=== PATIENT | male | born 1960 | race Caucasian/White ===

== ENCOUNTER → 2021-09-05 11:37 | Outpatient (CLI) | payer OTHER, SELFPAY ==
[2021-09-05 18:49] LABS: Add Manual Diff / Slide Review NO; Basophils Absolute Auto 0 /uL (0-100); Basophils Percent Auto 0.4 % (0-2); Eosinophils Absolute Auto 100 /uL (0-450); Eosinophils Percent Auto 1.1 % (2-4); Hematocrit 45.5 % (41-53); Hemoglobin 15.7 g/dL (13.5-17.5); Lymphocytes Absolute Auto 1600 /uL (1100-4500); Lymphocytes Percent Auto 27.6 % (25-40); Mean Corpuscular HGB Conc 34.6 % (30-36); Mean Corpuscular Hemoglobin 31.7 PG (26-34); Mean Corpuscular Volume 91.7 fL (80-100); Monocytes Absolute Auto 500 /uL (0-900); Monocytes Percent Auto 8.6 % (3-14); Neutrophils Absolute Auto 3700 /uL (1500-7000); Neutrophils Percent Auto 62.3 % (50-75); Platelet Count 232 X10^3/uL (150-400); Red Blood Cell Count 4.96 X10^6/uL (4.5-5.9); Red Cell Distribution Width 13.4 % (11.6-14.8); White Blood Cell Count 5.9 X10^3/uL (4.5-11.0)
[2021-09-05 19:03] LABS: Alanine Aminotransferase 21 IU/L (<50); Albumin 4.4 g/dL (3.5-5.0); Albumin Globulin Ratio 1.8 (1.0-2.8); Alkaline Phosphatase 64 U/L (38-126); Aspartate Aminotransferase 26 IU/L (17-59); BUN Creatinine Ratio 15.1 (6-22); Bilirubin Total 0.7 mg/dL (0.2-1.3); Blood Urea Nitrogen 13 mg/dL (9-20); Calcium 9.4 mg/dL (8.4-10.2); Carbon Dioxide 26 mmol/L (22-32); Chloride 107 mmol/L (98-107); Cholesterol 171 mg/dL (140-199); Estimated Glomerular Filt Rate > 60.0 mL/min (>60); Globulin 2.5 g/dL (1.7-4.1); Glucose 96 mg/dL (70-100); HDL Cholesterol 65 mg/dL (40-60); HEMOLYSIS < 15 (0-50); LDL Cholesterol Calculated 87 mg/dL (<100); Potassium 4.3 mmol/L (3.4-5.1); Sodium 140 mmol/L (137-145); Total Protein 6.9 g/dL (6.3-8.2); Triglycerides 97 mg/dL (35-150)
[2021-09-05 19:33] LABS: Prostate Specific Antigen Scrn 2.53 ng/mL (0.1-4.0)
[2021-09-05 19:52] LABS: Vitamin B12 972 pg/mL (239-931)
== END ==
PROVIDERS: Family Provider Family Medicine; PCP Family Medicine; Visit Provider Family Medicine
DX: Z00.00 Encounter for general adult medical examination without abnormal findings (principal); Z12.5 Encounter for screening for malignant neoplasm of prostate
CPT/HCPCS: 80053; 80061; 82607; 85025; G0103

== ENCOUNTER → 2022-03-04 15:46 | Outpatient (CLI) | payer OTHER, MEDICAID, SELFPAY ==
[2022-03-04 18:23] LABS: COVID19 -Nasal RAPID Negative (Negative)
== END ==
PROVIDERS: Family Provider Family Medicine; PCP Family Medicine; Visit Provider Surgery
DX: Z01.812 Encounter for preprocedural laboratory examination (principal); Z20.822 Contact with and (suspected) exposure to COVID-19
CPT/HCPCS: 87635; C9803

== ENCOUNTER 2022-03-05 08:59 | Day surgery (SDC) | payer OTHER, MEDICAID, SELFPAY ==
--- NOTE | 2022-03-05 | PATH_ITS ---
[facility] Accession Number: [id number] . 01 Material submitted: . colon - TRANSVERSE POLYP . 01 Clinical history: . [facility] [place] ENCOUNTER FOR SCREENING FOR MALIGNANT NEOPLASM . 01 Diagnosis: Transverse Colon Polyp, Biopsy: Tubular adenoma. MRV 03/10/2022 1141 Local . 01 Electronically signed: . Camron Schroeder MD, PhD, Pathologist NPI- [id number] . 01 Gross description: . TRANSVERSE POLYP: Received in formalin are 2 fragment(s) of cr, soft tissue measuring 0.3 x 0.3 x 0.2 cm to 1.0 x 0.7 x 0.6 cm submitted entirely in 1 cassette(s) /GILMAR 03/06/20222046 Local . 01 Pathologist provided ICD-10: D12.3 . 01 CPT . 154898 Performed at: 01 [facility] [address] [place] [address] [address], [place], [place] [id number] MD Howard Philip MD Phone: [phone]
[2022-03-05 09:41] VITALS: BP 128/76; PULSE 82; RESP 16; TEMP 36.6; O2SAT 99; BMI 22.9
[2022-03-05 10:03] VITALS: BMI 22.9
[2022-03-05] MEDS: LACTATED RINGERS 1,000 ML 42 ML IV ×2 (10:20→11:00)
--- NOTE | 2022-03-05 10:21 | PM.HP.1 ---
History of Present Illness History of Present Illness Date Patient Seen: 03/05/22 Time Patient Seen: 10:21 Chief complaint: [facility] [place]ative: Chris is a 62-year-old man who has never had a colonoscopy before. He has no known family history of colon cancer. Patient History Medical History Acne (~1969) Chicken pox (~1966) Depression (~1979) Foot pain (~2009) Schizoaffective disorder (~1979) Substance abuse (~2009) Well adult exam Surgical History (Updated 08/03/21 @ 16:01 by Yasmeen Hare) Anesthesia History of hernia repair (~2011) Family & Social History Family History (Updated 08/03/21 @ 16:03 by Yasmeen Hare) Father Cancer Mother Diabetes mellitus Brother Diabetes mellitus Grandmother Diabetes mellitus Grandmother Mental health problem Social History: household members spouse Tobacco & Substance use: Smoking Status Never smoker alcohol intake former Substance Use Type marijuana Meds Home Medications and Allergies Home Medications Medication Instructions Recorded Confirmed Type [FISH OIL] PO PRN ##0 11/28/10 10/09/21 History [GLUCOSAMINE] PO PRN ##0 11/28/10 10/09/21 History [SAW PALMETO] PO PRN ##0 11/28/10 10/09/21 History [VITAMIN C] PO PRN ##0 11/28/10 10/09/21 History [VITAMIN D] PO PRN ##0 11/28/10 10/09/21 History risperidone 1 mg tablet (Risperdal) 1 mg PO TID #180 tabs 07/10/21 10/09/21 Rx sertraline 50 mg tablet 50 mg PO DAILY #90 tabs 07/10/21 10/09/21 Rx epinephrine 0.3 mg/0.3 mL 0.3 mg (0.3 mL) IM Q4H PRN 09/05/21 10/09/21 Rx injection, auto-injector (EpiPen anaphylaxis #2 ea 2-Antonio) minoxidil 5 % topical solution 1 ml topical ONCE 10/09/21 10/09/21 History peg 3350-electrolytes 236 240 ml PO Q10M #4,000 mL 02/02/22 Rx gram-22.74 gram-6.74 gram-5.86 gram solution (Golytely) Allergies Allergy/AdvReac Type Severity Reaction Status Date / Time bee venom protein (honey bee) AdvReac Severe swelling, Verified 03/05/22 09:59 hives Exam Vital Signs (past 8 hours): - 03/05/22 09:41 Temperature 97.9 F Pulse Rate 82 Respiratory Rate 16 Blood Pressure 128/76 Pulse Oximetry 99 Oxygen Delivery Method Room Air Oxygen Delivery Method Room Air Const General: healthy appearing Resp Effort & Inspection: normal respiratory effort Assessment & Plan Assessment and plan (1) Colon cancer screening: Status: Acute Plan 62-year-old man due for colon cancer screening. We reviewed the risks and benefits of colonoscopy and he would like to proceed. COVID-19 COVID-19 status: Negative Result date/Date tested (Pos, Neg/Pending): 03/04/22 Time Spent With Patient Critical Care time: I spent a total of [] minutes of critical care time on this patient's care today; this time is exclusive of procedural time.
[2022-03-05] MEDS: fentaNYL 250 MCG/5 ML INJ IV (11:19)
[2022-03-05] MEDS: MIDAZOLAM 5 MG/5 ML VIAL 10 MG IV (11:19)
--- NOTE | 2022-03-05 11:29 | PM.OP.COLON ---
Operative Date/Time/Diagnoses Date of procedure: 03/05/22 Time of procedure: 11:29 Pre-op diagnosis: Colon cancer screening Post-op diagnosis: same Procedure & Clinicians Study performed: Colonoscopy Same procedure as scheduled: Yes Surgeon: Elan Kim Procedure Notes Procedure in detail: Surgeon: Elan Kim MD Procedure: The patient was brought to the endoscopy suite, placed in left lateral decubitus position. The patient was connected to monitoring devices. A time-out was performed. Sedation was administered. Once the patient was adequately sedated, a digital rectal exam was performed and was normal. The scope was then inserted and advanced to the cecum where the appendiceal orifice was identified and photographed. The scope was then slowly withdrawn over greater than 6 minutes. The mucosa was thoroughly inspected. There was a roughly 1.3 cm sessile polyp in the midtransverse colon. Saline lift was performed followed by removal with the hot snare. The specimen had to be removed with the Moreno Net. The scope was reinserted and the area was inspected. There was 1 small nodule at the edge of the polypectomy scar that may have been portion of the polyp and was resected with a Jumbo forceps. We then injected tattoo ink just proximal to and across from the polypectomy scar. The scope was withdrawn and no other lesions were noted. The scope was retroflexed in the rectum. No abnormalities were noted. The scope was straightened and removed. The patient was awakened and brought to recovery. Versed: 10 mg Fentanyl: 250 mcg EBL: 10 mL Findings: 1.3 cm sessile polyp in the midtransverse colon Scope withdrawal time: 42 Sedation minutes: 58 Post-procedure Recommendations: Will call with biopsy results Disposition: PACU
[2022-03-05 11:32] VITALS: BP 105/67; PULSE 66; RESP 12; TEMP 36.1; O2SAT 95
[2022-03-05 11:38] VITALS: BP 98/65; PULSE 64; RESP 11; TEMP 36.1; O2SAT 94
[2022-03-05 11:42] VITALS: BP 130/87; PULSE 70; RESP 15; TEMP 36.6; O2SAT 97
[2022-03-05 11:47] VITALS: BP 124/79; PULSE 66; RESP 14; TEMP 36.5; O2SAT 98
== END 2022-03-05 12:00 | disposition home or self-care (01) ==
PROVIDERS: Family Provider Family Medicine; PCP Family Medicine; Referring Provider Surgery; Visit Provider Surgery
PROC: 0DJD8ZZ Inspection of Lower Intestinal Tract, Via Natural or Artificial Opening Endoscopic (ICD-10-PCS; CPT 45378; principal; 2022-03-05 10:15)
DX: Z12.11 Encounter for screening for malignant neoplasm of colon (principal); D12.3 Benign neoplasm of transverse colon
CPT/HCPCS: 45381; 45380; 99152; 99153; J2250; J3010

== ENCOUNTER → 2022-08-04 12:03 | Outpatient (CLI) | payer OTHER, MEDICAID, SELFPAY ==
[2022-08-04 18:48] LABS: Add Manual Diff / Slide Review NO; Basophils Absolute Auto 0 /uL (0-100); Basophils Percent Auto 0.3 % (0-2); Eosinophils Absolute Auto 100 /uL (0-450); Eosinophils Percent Auto 0.6 % (2-4); Hematocrit 44.9 % (41-53); Hemoglobin 15.3 g/dL (13.5-17.5); Lymphocytes Absolute Auto 1600 /uL (1100-4500); Lymphocytes Percent Auto 19.4 % (25-40); Mean Corpuscular HGB Conc 34.1 % (30-36); Mean Corpuscular Hemoglobin 31.2 PG (26-34); Mean Corpuscular Volume 91.5 fL (80-100); Monocytes Absolute Auto 600 /uL (0-900); Monocytes Percent Auto 7.5 % (3-14); Neutrophils Absolute Auto 6000 /uL (1500-7000); Neutrophils Percent Auto 72.2 % (50-75); Platelet Count 248 X10^3/uL (150-400); Red Blood Cell Count 4.91 X10^6/uL (4.5-5.9); Red Cell Distribution Width 13.4 % (11.6-14.8); White Blood Cell Count 8.3 X10^3/uL (4.5-11.0)
[2022-08-04 18:57] LABS: BUN Creatinine Ratio 14.3 (6-22); Blood Urea Nitrogen 13 mg/dL (9-20); Calcium 8.8 mg/dL (8.4-10.2); Carbon Dioxide 25 mmol/L (22-32); Chloride 105 mmol/L (98-107); Cholesterol 143 mg/dL (140-199); Estimated Glomerular Filt Rate > 60 mL/min (>60); Glucose 94 mg/dL (80-110); HDL Cholesterol 51 mg/dL (40-60); HEMOLYSIS < 15 (0-50); LDL Cholesterol Calculated 77 mg/dL (<100); Potassium 4.4 mmol/L (3.4-5.1); Sodium 136 mmol/L (137-145); Triglycerides 75 mg/dL (35-150)
== END ==
PROVIDERS: Family Provider Family Medicine; PCP Family Medicine; Visit Provider Family Medicine
DX: Z13.220 Encounter for screening for lipoid disorders (principal); F25.1 Schizoaffective disorder, depressive type; F32.9 Major depressive disorder, single episode, unspecified; Z51.81 Encounter for therapeutic drug level monitoring
CPT/HCPCS: 80048; 80061; 85025

== ENCOUNTER → 2023-10-20 09:34 | Outpatient (CLI) | payer OTHER, SELFPAY ==
[2023-10-20 20:36] LABS: Add Manual Diff / Slide Review NO; Alanine Aminotransferase 23 IU/L (<50); Albumin 4.1 g/dL (3.5-5.0); Albumin Globulin Ratio 1.5 (1.0-2.8); Alkaline Phosphatase 73 U/L (38-126); Aspartate Aminotransferase 29 IU/L (17-59); BUN Creatinine Ratio 21.8 (6-22); Basophils Absolute Auto 0 /uL (0-100); Basophils Percent Auto 0.4 % (0-2); Bilirubin Total 1.5 mg/dL (0.2-1.3); Blood Urea Nitrogen 17 mg/dL (9-20); Calcium 9.3 mg/dL (8.4-10.2); Carbon Dioxide 22 mmol/L (22-32); Chloride 106 mmol/L (98-107); Cholesterol 144 mg/dL (140-199); Eosinophils Absolute Auto 100 /uL (0-450); Eosinophils Percent Auto 1.5 % (2-4); Estimated Glomerular Filt Rate > 60 mL/min (>60); Globulin 2.7 g/dL (1.7-4.1); Glucose 105 mg/dL (80-110); HDL Cholesterol 55 mg/dL (40-60); HEMOLYSIS 21 (0-50); Hematocrit 46.2 % (41-53); Hemoglobin 15.9 g/dL (13.5-17.5); LDL Cholesterol Calculated 76 mg/dL (<100); Lymphocytes Absolute Auto 1700 /uL (1100-4500); Lymphocytes Percent Auto 21.8 % (25-40); Mean Corpuscular HGB Conc 34.5 % (30-36); Mean Corpuscular Hemoglobin 31.7 PG (26-34); Monocytes Absolute Auto 600 /uL (0-900); Monocytes Percent Auto 7.2 % (3-14); Neutrophils Absolute Auto 5400 /uL (1500-7000); Neutrophils Percent Auto 69.1 % (50-75); Platelet Count 270 X10^3/uL (150-400); Potassium 4.4 mmol/L (3.4-5.1); Red Blood Cell Count 5.02 X10^6/uL (4.5-5.9); Red Cell Distribution Width 13.1 % (11.6-14.8); Sodium 138 mmol/L (137-145); Total Protein 6.8 g/dL (6.3-8.2); Triglycerides 67 mg/dL (35-150); White Blood Cell Count 7.8 X10^3/uL (4.5-11.0)
== END ==
PROVIDERS: Family Provider Family Medicine; PCP Family Medicine; Visit Provider Family Medicine
DX: F10.19 Alcohol abuse with unspecified alcohol-induced disorder (principal); F25.9 Schizoaffective disorder, unspecified; F32.A Depression, unspecified
CPT/HCPCS: 80053; 80061; 85025

== ENCOUNTER → 2024-10-09 10:30 | Outpatient (CLI) | payer BC, SELFPAY ==
[2024-10-09 19:01] LABS: Add Manual Diff / Slide Review NO; Basophils Absolute Auto 0 /uL (0-100); Basophils Percent Auto 0.4 % (0-2); Eosinophils Absolute Auto 100 /uL (0-450); Hematocrit 47.5 % (41-53); Hemoglobin 15.8 g/dL (13.5-17.5); Lymphocytes Absolute Auto 1900 /uL (1100-4500); Lymphocytes Percent Auto 26.3 % (25-40); Mean Corpuscular HGB Conc 33.3 % (30-36); Mean Corpuscular Hemoglobin 31.2 PG (26-34); Mean Corpuscular Volume 93.7 fL (80-100); Monocytes Absolute Auto 600 /uL (0-900); Monocytes Percent Auto 8.3 % (3-14); Neutrophils Absolute Auto 4700 /uL (1500-7000); Platelet Count 295 X10^3/uL (150-400); Red Blood Cell Count 5.06 X10^6/uL (4.5-5.9); Red Cell Distribution Width 13.6 % (11.6-14.8); White Blood Cell Count 7.4 X10^3/uL (4.5-11.0)
[2024-10-09 19:16] LABS: Alanine Aminotransferase 24 IU/L (<50); Albumin 4.5 g/dL (3.5-5.0); Albumin Globulin Ratio 1.9 (1.0-2.8); Alkaline Phosphatase 73 U/L (38-126); Aspartate Aminotransferase 27 IU/L (17-59); BUN Creatinine Ratio 16.9 (6-22); Blood Urea Nitrogen 15 mg/dL (9-20); Calcium 9.3 mg/dL (8.4-10.2); Carbon Dioxide 27 mmol/L (22-32); Chloride 106 mmol/L (98-107); Cholesterol 158 mg/dL (140-199); Estimated Glomerular Filt Rate > 60 mL/min (>60); Globulin 2.4 g/dL (1.7-4.1); Glucose 110 mg/dL (80-110); HDL Cholesterol 56 mg/dL (40-60); HEMOLYSIS < 15 (0-50); LDL Cholesterol Calculated 89 mg/dL (<100); Potassium 4.1 mmol/L (3.4-5.1); Sodium 139 mmol/L (137-145); Total Protein 6.9 g/dL (6.3-8.2); Triglycerides 63 mg/dL (35-150)
[2024-10-09 19:44] LABS: Prostate Specific Antigen Scrn 4.66 ng/mL (0.1-4.0)
== END ==
PROVIDERS: PCP Family Medicine; Visit Provider Family Medicine
DX: F10.19 Alcohol abuse with unspecified alcohol-induced disorder (principal); F32.A Depression, unspecified; M77.41 Metatarsalgia, right foot; M77.42 Metatarsalgia, left foot; F25.9 Schizoaffective disorder, unspecified; Z12.5 Encounter for screening for malignant neoplasm of prostate
CPT/HCPCS: 80053; 80061; 85025; G0103

== ENCOUNTER → 2024-11-06 14:00 | Outpatient (CLI) | payer BC, SELFPAY ==
[2024-11-06 19:55] LABS: Prostate Specific Antigen 3.11 ng/mL (0.10-4.00)
== END ==
PROVIDERS: PCP Family Medicine; Visit Provider Family Medicine
DX: R97.20 Elevated prostate specific antigen [PSA] (principal)
CPT/HCPCS: 84153

== ENCOUNTER → 2025-06-28 10:15 | Outpatient (CLI) | payer BC, SELFPAY ==
[2025-06-28 18:57] LABS: Add Manual Diff / Slide Review NO; Hematocrit 47.6 % (41-53); Hemoglobin 16.3 g/dL (13.5-17.5); Lymphocytes Absolute Auto 1500 /uL (1100-4500); Mean Corpuscular HGB Conc 34.2 % (30-36); Mean Corpuscular Hemoglobin 31.6 PG (26-34); Mean Corpuscular Volume 92.5 fL (80-100); Platelet Count 276 X10^3/uL (150-400)
[2025-06-28 19:17] LABS: HEMOLYSIS 44 (0-50)
[2025-06-28 19:24] LABS: Alanine Aminotransferase 22 IU/L (<50); Albumin 4.2 g/dL (3.5-5.0); Albumin Globulin Ratio 1.6 (1.0-2.8); Alkaline Phosphatase 80 U/L (38-126); Blood Urea Nitrogen 16 mg/dL (9-20); Calcium 9.2 mg/dL (8.4-10.2); Carbon Dioxide 27 mmol/L (22-32); Chloride 104 mmol/L (98-107); Cholesterol 161 mg/dL (140-199); Estimated Glomerular Filt Rate > 60 mL/min (>60); Globulin 2.6 g/dL (1.7-4.1); Glucose 113 mg/dL (70-99); HDL Cholesterol 72 mg/dL (40-60); Potassium 4.7 mmol/L (3.4-5.1); Sodium 137 mmol/L (137-145); Total Protein 6.8 g/dL (6.3-8.2); Triglycerides 46 mg/dL (35-150)
[2025-06-28 20:19] LABS: Prostate Specific Antigen 2.75 ng/mL (0.10-4.00)
== END ==
PROVIDERS: PCP Family Medicine; Visit Provider Family Medicine
DX: F10.90 Alcohol use, unspecified, uncomplicated (principal); F32.9 Major depressive disorder, single episode, unspecified; R97.20 Elevated prostate specific antigen [PSA]; F25.1 Schizoaffective disorder, depressive type
CPT/HCPCS: 80053; 80061; 84153; 85025